=== PATIENT | female | born 1990 | race Hispanic/Latino ===

== ENCOUNTER 2024-07-04 09:17 | Emergency (ER) | payer SELFPAY ==
--- NOTE | ~2024-07-04 | CT_ITS ---
CT soft tissue neck w con Ordering provider: Warner Antunez MD History: 34 years Female with . Persistent lymphadenopathy . Comparison: None. Technique: CT soft tissues neck was performed with contrast. . Automated exposure control and iterat j carlos reconstruction technique were employed. The dose-length product was 541.41 mGy-cm. 75 mL Omnipaqu e 350 was given IV. Findings: LOWER HEAD: The visualized brain parenchyma, optic globes/orbits and mastoids are normal. The visua lized paranasal sinuses are well aerated. SALIVARY GLANDS: Normal. THYROID: Normal. SUPRAHYOID DEEP SPACES: Enlarged lymph nodes are seen in both parapharyngeal spaces and in the right posterior triangle. The largest in the right posterior triangle measures 1.8 cm with surrounding fat stranding suggestive of inflammatory changes. The largest in the right parapharyngeal space is 2.2 cm with minimal surrounding fat stranding. The left largest parapharyngeal lymph node is 1.7 cm. Enlarg ed lymph node in the right parotid gland area is also noted measuring 1.4 cm. Lymph node is seen in t he left axillary area. Measuring 1.4 cm. CAROTID ARTERIES: Normal. JUGULAR VEINS: Normal. TONSILS: Normal. ORAL CAVITY: Partially obscured by dental amalgam but normal as visualized. PHARYNX, LARYNX AND TRACHEA: Patent and normal. No prevertebral soft tissue swelling. SUPERFICIAL SOFT TISSUES: Normal. No lymphadenopathy or neck mass. THORACIC INLET/VISUALIZED UPPER CHEST: Normal. SKELETAL: Normal. Lymph nodes are also seen in the suboccipital subcutaneous area. IMPRESSION: 1. Lymph nodes seen in the parapharyngeal spaces, right parotid area and and the right posterior tri angle and also in the left axillary area with surrounding fat stranding and multiple areas. Further e valuation advised. 2. Other appearances are unremarkable. Reviewed, dictated and finalized at location A. IPITATOR SUPERVISOR IMPRESSION: 1. Lymph nodes seen in the parapharyngeal spaces, right parotid area and and t he right posterior triangle and also in the left axillary area with surrounding fat stranding and multiple areas. Further evaluation advised. 2. Other appearances are unremarkable.
--- NOTE | ~2024-07-04 | XR_ITS ---
XR chest 2V Ordering provider: Declan Ross MD History: 34 years Female with . swollen lymph nodes NOTABLE RT SIDE NECK STS FATIGUE X 2 MOS . Comparison: None. FINDINGS: MEDIASTINUM: The cardiac silhouette is not enlarged. LUNGS: No infiltrates, effusions or pneumothorax. OTHER: No free air under the diaphragm. IMPRESSION: No acute cardiopulmonary pathology. Reviewed, dictated and finalized at location A. ICE ADVISOR
[2024-07-04 09:27] VITALS: BP 147/97; PULSE 80; RESP 16; TEMP 36.4; O2SAT 100
[2024-07-04 10:01] LABS: Basophils Percent Auto 0.4 % (0.2-1.2); Eosinophils Absolute Auto 0.2 K/mm3 (0-0.3); Eosinophils Percent Auto 3.2 % (0-4.4); Hematocrit 43.4 % (37.0-47.0); Hemoglobin 14.3 g/dL (12.0-15.0); Immature Granulocyte Absolute 0.01 K/mm3 (0.00-0.031); Immature Granulocyte Percent A 0.1 % (0-0.5); Lymphocytes Absolute Auto 1.64 K/mm3 (0.9-3.2); Lymphocytes Percent Auto 23.7 % (18.3-44.2); Mean Corpuscular HGB Conc 32.9 g/dl (32-36); Mean Corpuscular Hemoglobin 29.5 pg (26-34); Mean Corpuscular Volume 89.5 fl (80-100); Mean Platelet Volume 10.2 fl (7.4-10.4); Monocytes Absolute Auto 0.5 K/mm3 (0.1-0.6); Monocytes Percent Auto 7.4 % (2.6-8.5); Neutrophils Absolute Auto 4.5 K/mm3 (1.3-6.7); Neutrophils Percent Auto 65.2 % (45.5-73.1); Platelet Count Result 262 k/mm3 (150-375); Red Blood Count 4.85 M/mm3 (4.2-5.4); Red Cell Distribution Width 12.2 % (11.5-14.5); White Blood Count 6.9 K/mm3 (4.5-10.0)
[2024-07-04 10:08] LABS: Add Urine Microscopic? YES; Appearance Urine Clear (Clear); Bacteria Urine Rare /hpf; Bilirubin Urine Negative (Negative); Blood Urine Negative (Negative); Color Urine Yellow (Yellow); Glucose Urine UA Negative (Negative); Ketones Urine 1+ mg/dL (Negative); Leukocyte Esterase Ur 2+ LEU/UL (Negative); Nitrate Urine Negative (Negative); Non Pathogenic Casts 0-2; Protein Urine Trace mg/dL (Negative); RBC Urine 0-2 /hpf (0-2); Specific Grav Ur 1.023 (1.001-1.035); Squamous Epithelial Cell Urine Occasional /hpf (Few); Urobilinogen Urine 0.2 mg/dL (<2.0)
[2024-07-04 10:10] LABS: Alanine Aminotransferase 37 U/L (6-35); Albumin Level 4.7 g/dL (3.5-5.1); Alkaline Phosphatase 77 U/L (38-126); Anion Gap 8 mmol/L (4-12); Aspartate Amino Transferase 33 U/L (14-36); Bilirubin,Total 1.3 mg/dL (0.2-1.3); Blood Urea Nitrogen 11 mg/dL (7-17); Calcium 9.3 mg/dL (8.4-10.2); Carbon Dioxide 25 mmol/L (22-30); Chloride 106 mmol/L (98-107); Estimated CRCL calculation 95 ml/min; Estimated Glomerular Filt Rate > 60; Glucose 95 mg/dL (65-110); Potassium 3.8 mmol/L (3.4-5.0); Sodium 139 mmol/L (137-145)
[2024-07-04 10:28] LABS: Monoscreen Negative (Negative); Negative Monotest Control Negative (Negative); Positive Monotest Control Positive (Positive)
[2024-07-04 10:29] LABS: Strep Group A RT-PCR NOT DETECTED (Negative)
[2024-07-04 10:40] LABS: Influenza A QL RT-PCR Negative (Negative); Influenza B QL RT-PCR Negative (Negative); RSV RNA, RT-PCR Negative (Negative); SARS-CoV-2 RNA PCR Negative (Negative)
[2024-07-04 12:45] VITALS: BP 141/93; PULSE 88; RESP 16; O2SAT 97
--- NOTE | 2024-07-04 13:26 | ED_ITS ---
HPI - General Adult General Chief complaint: Unspecified Stated complaint: swelling to R neck Time Seen by Provider: 07/04/24 13:03 History of Present Illness HPI narrative: 34-year-old female presenting to the emergency department for evaluation for persistent bilateral cervical lymph nodes. Patient 1st noticed the lymph nodes on the right side in May. Patient did have some tenderness with the swollen lymph nodes but eventually she forgot about them. Patient states they began bothering her again last night and she realized that she had had them longer than she had realized. Patient states she also has a lymph node developing on the left lateral neck. Patient did describe some ear pain but denies any to her throat pain. Patient denies any recent illnesses, patient denies any associated generalized weakness fatigue or fatigue. Related Data Allergies Allergy/AdvReac Type Severity Reaction Status Date / Time No Known Allergies Allergy Unverified 06/04/15 20:05 Review of Systems Review of Systems: All systems reviewed & are unremarkable except as noted in HPI and below Exam Narrative: APPEARANCE: Well appearing, no pain, no distress, well-nourished. HEAD: normocephalic, atraumatic. EYES: PERRLA/EOMI, conjunctivae clear. NOSE: Normal no drainage EARS:TMS clear with good light reflex. THROAT: Pharynx clear, no exudate. NECK: Bilateral cervical lymphadenopathy RESPIRATORY: Airway patent, respirations nonlabored. Clear to auscultation b ilaterally, no rales, rhonchi, wheezing. CARDIOVASCULAR: Regular rate and rhythm without murmurs rubs or gallops. ABDOMINAL: Soft, nontender, nondistended, normal bowel sounds MUSCULOSKELETAL: Moves all extremities. Strength/ROM intact, No edema, No calf tenderness. NEURO: Alert. Cranial nerves II through XII intact. Good gait. Good coordination SKIN: Warm, dry. Normal Color Course Vital Signs Vital signs: Vital Signs Temperature 97.6 F 07/04/24 09:27 Pulse Rate 80 07/04/24 09:27 Respiratory Rate 16 07/04/24 09:27 Blood Pressure 147/97 H 07/04/24 09:27 Pulse Oximetry 100 07/04/24 09:27 Oxygen Delivery Room Air 07/04/24 09:27 Temperature 97.6 F 07/04/24 09:27 Pulse Rate 90 07/04/24 17:35 Respiratory Rate 16 07/04/24 17:35 Blood Pressure 141/93 H 07/04/24 17:35 Pulse Oximetry 99 07/04/24 17:35 Oxygen Delivery Room Air 07/04/24 09:27 Medical Decision Making MDM Narrative Medical decision making narrative: 34-year-old female presenting to the emergency department for evaluation for persistent lymph nodes. Patient is afebrile with no leukocytosis and hemoglobin of 14.3. No acute abnormalities on the patient's CMP UA was negative for infection patient was negative for influenza RSV COVID strep and mono. CT scan was concerning due to the large number of activated lymph nodes. Patient denies any pain in her armpit or breast. Patient was encouraged of close follow-up with her primary care physician for additional outpatient testing including potential biopsy. All questions were addressed patient was comfortable the plan for discharge and close follow-up. Differential Diagnosis Differential Diagnosis: Limb adenopathy, strep throat, otitis media, cellulitis, mono, lymphoma Medical Records Medical records reviewed: Yes I reviewed the external patient's medical records. Vital Signs Vital Signs: Vital Signs Temperature 97.6 F 07/04/24 09:27 Pulse Rate 80 07/04/24 09:27 Respiratory Rate 16 07/04/24 09:27 Blood Pressure 147/97 H 07/04/24 09:27 Pulse Oximetry 100 07/04/24 09:27 Oxygen Delivery Room Air 07/04/24 09:27 Temperature 97.6 F 07/04/24 09:27 Pulse Rate 90 07/04/24 17:35 Respiratory Rate 16 07/04/24 17:35 Blood Pressure 141/93 H 07/04/24 17:35 Pulse Oximetry 99 07/04/24 17:35 Oxygen Delivery Room Air 07/04/24 09:27 Lab Data Lab results reviewed: Yes I reviewed the patient's lab results. 07/04/24 09:48 07/04/24 09:48 Labs: Lab Results 07/04/24 07/04/24 Range/Units 09:47 09:48 WBC 6.9 (4.5-10.0) K/mm3 RBC 4.85 (4.2-5.4) M/mm3 Hgb 14.3 (12.0-15.0) g/dL Hct 43.4 (37.0-47.0) % MCV 89.5 (80-100) fl MCH 29.5 (26-34) pg MCHC 32.9 (32-36) g/dl RDW 12.2 (11.5-14.5) % Plt Count 262 (150-375) k/mm3 MPV 10.2 (7.4-10.4) fl Immature Gran % (Auto) 0.1 (0-0.5) % Neut % (Auto) 65.2 (45.5-73.1) % Lymph % (Auto) 23.7 (18.3-44.2) % [place] % (Auto) 7.4 (2.6-8.5) % Eos % (Auto) 3.2 (0-4.4) % Baso % (Auto) 0.4 (0.2-1.2) % Lymph # (Auto) 1.64 (0.9-3.2) K/mm3 [place] # (Auto) 0.5 (0.1-0.6) K/mm3 Eos # (Auto) 0.2 (0-0.3) K/mm3 Baso # (Auto) 0.0 (0.0-0.1) K/mm3 Abs Immat Gran (auto) 0.01 (0.00-0.031) K/mm3 Absolute Neuts (auto) 4.5 (1.3-6.7) K/mm3 Absolute Nucleated RBC 0.000 (0.0-0.012) K/mm3 Nucleated RBC % 0.0 (0.0-0.2) % Sodium 139 (137-145) mmol/L Potassium 3.8 (3.4-5.0) mmol/L Chloride 106 (98-107) mmol/L Carbon Dioxide 25 (22-30) mmol/L Anion Gap 8 (4-12) mmol/L BUN 11 (7-17) mg/dL Creatinine 0.80 (0.7-1.0) mg/dL Estim Creat Clear Calc 95 ml/min Estimated GFR > 60 (59 - ) Glucose 95 (65-110) mg/dL Calcium 9.3 (8.4-10.2) mg/dL Total Bilirubin 1.3 (0.2-1.3) mg/dL AST 33 (14-36) U/L ALT 37 H (6-35) U/L Alkaline Phosphatase 77 (38-126) U/L Total Protein 8.0 (6.3-8.2) g/dL Albumin 4.7 (3.5-5.1) g/dL Urine Color Yellow (Yellow) Urine Appearance Clear (Clear) Urine pH 5.0 (5.0-9.0) Ur Specific [place] 1.023 (1.001-1.035) Urine Protein Trace (Negative) mg/dL Urine Glucose (UA) Negative (Negative) mg/dL Urine Ketones 1+ H (Negative) mg/dL Ur Blood (Man) Negative (Negative) Urine Nitrate Negative (Negative) Urine Bilirubin Negative (Negative) Urine Urobilinogen 0.2 (<2.0) mg/dL Leukocyte Esterase Rfl 2+ H (Negative) PHILIPPE/UL Urine RBC 0-2 (0-2) /hpf Urine WBC 6-10 H (0-3) /hpf Ur Squamous Epith Cells Occasional (Few) /hpf Urine Bacteria Rare /hpf Urine Casts 0-2 Urine Test Negative Monoscreen Negative (Negative) Influenza A (RT-PCR) Negative (Negative) Influenza B (RT-PCR) Negative (Negative) RSV (RT-PCR) Negative (Negative) SARS-CoV-2 RNA (RT-PCR) Negative (Negative) Group A Strep (PCR) Not detected (Negative) Imaging Data Radiologist's impression: Impressions Chest X-Ray 07/04/24 09:39 IMPRESSION: No acute cardiopulmonary pathology. Soft Tissue Neck CT 07/04/24 14:45 IMPRESSION: 1. Lymph nodes seen in the parapharyngeal spaces, right parotid area and and the right posterior triangle and also in the left axillary area with surrounding fat stranding and multiple areas. Further evaluation advised. 2. Other appearances are unremarkable. Discharge Plan Discharge Clinical Impression: Cervical lymphadenopathy Patient Disposition: Home, Self-Care Condition: Stable Instructions: Antibiotic Form, Lymphadenopathy (ED) Additional Instructions: Your CT scan did show lymphadenopathy. You will need close follow-up with your primary care physician. If you have any worsening symptoms then please call or return to the emergency department. Follow-up/Referrals: PHYSICIAN,[facility] [Non-Staff] -
--- NOTE | 2024-07-04 13:53 | PC.NURSE ---
Urine already sent down to lab. Lab called to add on urine test prior to CT.
[2024-07-04 14:15] LABS: Pregnancy On Board Control Positive; Urine Pregnancy Test Negative
[2024-07-04 17:35] VITALS: BP 141/93; PULSE 90; RESP 16; O2SAT 99
== END 2024-07-04 17:41 | disposition home or self-care (01) ==
PROVIDERS: Emergency Medicine; Emergency Provider Emergency Medicine
DX: R59.0 Localized enlarged lymph nodes (principal); Z20.822 Contact with and (suspected) exposure to COVID-19
CPT/HCPCS: 36415; 70491; 71046; 80053; 81001; 81025; 85025; 86308; 87086; 87637; 87651; 99284; Q9967